=== PATIENT | female | born 2000 | race Two or more races ===

== ENCOUNTER → 2023-09-19 | Outpatient (REF) | payer OTHER ==
[2023-09-20 13:55] LABS: Trichomonas vaginalis (AMP) NOT DETECTED (NEGATIVE)
[2023-09-20 14:19] LABS: GC DNA AMPLIFICATION NEGATIVE (NEGATIVE)
[2023-09-22 12:00] LABS: HPV APTIMA Detected (Not Detected)
== END ==
LOC: M SFHCCLAY 10:41
PROVIDERS: ATTEND Physician Assistant
DX: Z12.4 Encounter for screening for malignant neoplasm of cervix (principal); Z77.9 Other contact with and (suspected) exposures hazardous to health